=== PATIENT | male | born 1955 ===

== ENCOUNTER 2019-04-20 20:03 | Emergency (ER) | payer OTHER ==
[~2019-04-20] VITALS: Ht 177.8 cm; Wt 81.6 kg
[2019-04-20 20:08] VITALS: Ht 177.8 cm; Wt 81.6 kg
[2019-04-20 20:43] LABS: CALCIUM 9.7 mg/dL (8.5-10.1); CARBON DIOXIDE 28.5 mmol/L (21-32); CHLORIDE SERUM 104 mmol/L (98-107); CREATININE SERUM 1.1 mg/dL (0.7-1.3); GFR1 > 60 mL/min; GLUCOSE SERUM 113 mg/dL (74-106); POTASSIUM SERUM 4.5 mmol/L (3.5-5.1); SODIUM SERUM 141 mmol/L (136-145)
[2019-04-20 20:44] LABS: BASOPHIL % 0.2 % (0-2); PLATELET COUNT 272 x10^3mcL (130-400); RED CELL DISTRIBUTION WIDTH 13.5 % (11.5-14.5)
[2019-04-20 20:47] LABS: ALKALINE PHOSPHATASE 94 U/L (46-116); ALT/SGPT 44 U/L (16-63); AST/SGOT 29 U/L (15-37); BILIRUBIN TOTAL 0.8 mg/dL (0.20-1.00); LIPASE 104 IU/L (73-393)
[2019-04-20 21:51] LABS: microscopic required? NO
[2019-04-20 22:14] LABS: UA SPECIFIC GRAVITY 1.025 (1.005-1.035); urine erythrocyte NEGATIVE (NEGATIVE)
[2019-04-21 03:05] VITALS: BP 141/92
== END 2019-04-21 03:11 | disposition short-term general hospital (02) ==
LOC: ED 20:03
PROVIDERS: Emergency Medicine
DX: S22.31XA Fracture of one rib, right side, initial encounter for closed fracture (principal); S27.329A Contusion of lung, unspecified, initial encounter; S29.9XXA Unspecified injury of thorax, initial encounter; J93.9 Pneumothorax, unspecified; E78.00 Pure hypercholesterolemia, unspecified; J45.909 Unspecified asthma, uncomplicated; W20.8XXA Other cause of strike by thrown, projected or falling object, initial encounter; Y93.89 Activity, other specified; Y92.89 Other specified places as the place of occurrence of the external cause; Y99.8 Other external cause status
CPT/HCPCS: 32551; J2001; J2405; J3010; Q0092; Q9967